=== PATIENT | male | born 1960 ===

== ENCOUNTER → 2017-12-31 | Outpatient (CLI) | payer BC ==
--- NOTE | 2017-12-31 17:41 | Diagnostic Imaging Report ---
EXAMINATION: CT of the face HISTORY: Sinusitis COMPARISON: None available TECHNIQUE: Multidetector helical axial images were acquired through the face without contrast and were reconstructed in bone and soft tissue algorithms. Images were viewed in multiplanar format. FINDINGS: Bones: Unremarkable. Facial soft tissues: Unremarkable. Paranasal sinuses and drainage pathways: The frontal, ethmoidal, sphenoid and maxillary sinuses are clear. The ostiomeatal units, fronto-nasal and spheno-ethmoidal recesses are clear. Orbits contents: Unremarkable. Nasal septum: Minimal left-sided deviation. Mild hypertrophy of the inferior turbinates. Anatomic variations: No significant anatomic variations. Dentition: No acute abnormality of the visualized teeth. IMPRESSION: 1. The paranasal sinuses and drainage pathways are clear. 2. Mild left-sided nasal septal deviation. 3. Mild hypertrophy of the inferior turbinates. Signed by: Dr. Tanja Ruffin M.D. on 12/31/2017 5:38 PM
== END ==
LOC: CT 13:22
PROVIDERS: ATTEND Otolaryngology
DX: J32.9 Chronic sinusitis, unspecified (principal)
CPT/HCPCS: 70486